=== PATIENT | male | born 1990 | race Caucasian/White ===

== ENCOUNTER 2017-03-09 21:43 | Emergency (ER) | payer OTHER ==
--- NOTE | ~2017-03-09 | EKG ---
PATIENT: DOE MILLER UNIT #: [id number] Ventricular Rate: 83 BPM Atrial Rate: 83 BPM P-R Interval: 126 ms QRS Duration: 92 ms Q-T Interval: 378 ms QTC Calculation(Bezet): 444 ms P [place]: 75 degrees Calculated R [place]: 67 degrees Calculated T [place]: 65 degrees Diagnosis Line: Normal sinus rhythm Diagnosis Line: Normal ECG Diagnosis Line: No previous ECGs available Diagnosis Line: Confirmed by KATHY CHAN MD ([id number]) on 03/10/2017 Diagnosis Line: 10:40:41 AM INTERPRETING MD: DUSTIN NAIR
--- NOTE | ~2017-03-09 | CT72 ---
[facility] A Service of [facility] RADIOLOGY TEXT RESULTS PATIENT: DOE MILLER LOCATION: [place] : [birth year] UNIT #: [id number] AGE: [address]: Ever Blake DO SEX: M ORDER DR: [id number] [facility] [address] [place], [place] [address] [id number] MR#: [id number] Acc #: [id number] NAME: DOE MILLER : 1990 SEX: M STUDY DATE/TIME: 03/09/2017 22:39 UNIT: [place] ROOM: STUDY DESCRIPTION: CT Head Wo Contrast Stroke Attending Physician: Ever Blake D.O. Ordering Physician: Ever Blake D.O. Primary Care Physician: No Primary Care Physician MEDICAL IMAGING REPORT This report is preliminary unless electronic signature is present EXAM Head CT. DATE OF EXAM 03/09/2017, 22:39. INDICATIONS Patient had stroke yesterday and was given TPA. Patient subsequently left against medical advice. Patient reports left hand numbness and left foot numbness with confusion and slurred speech today. Prior history of stroke. FINDINGS Axial images were obtained from the base to the vertex without contrast. COMPARISON Comparison is made with 03/08/2017. This CT exam was performed with one or more of the following radiation dose reduction techniques: automatic exposure control, adjustment of mA and/or kV according to patient size, and iterative reconstruction. Ventricular size and configuration remain normal. No acute infarct or hemorrhage. No masses. No skull fracture. IMPRESSION Negative head CT. No change from yesterday. Dictated by... Mike Elliott Jr., M.D. THIS IS AN ELECTRONICALLY VERIFIED REPORT Mike Elliott Jr., M.D. at 03/10/2017 6:01 AM [facility] A Service of [facility] RADIOLOGY TEXT RESULTS PATIENT: DOE MILLER LOCATION: [place] : [birth year] UNIT #: [id number] AGE: [address]: Ever Blake DO SEX: M ORDER DR: Paula TD: 03/09/2017 23:34 JOB #: [id number] MEDICAL IMAGING REPORT Page 1 of 1 COPY
[~2017-03-09 21:43] MED LIST: AUGMENTIN; BACTROBAN15 GM; BACTROBAN22 GM; CONCERTA PO; DARVOCET-N 1001 TA1 PO; FLEXERIL10 MG PO; IBUPROFEN800 MG PO; KEFLEX500 M1 PO; KEFLEX500 MG PO; MOTRIN600 M1 PO; MOTRIN600 MG PO; NAPROSYN500 MG PO; NO MEDICATIONS; ORUDIS75 M1 PO; PERCOCET5/325 PO; ROBAXIN; SEROQUEL PO; ULTRAM PO
[2017-03-09 23:02] LABS: BASOPHIL% 0.4 % (0-2.5); EOSINOPHIL# 0.3 X10e3 (0-0.7); HEMATOCRIT 43.3 % (38.0-50.0); LYMPHOCYTE# 2.8 X10e3 (1.0-3.5); LYMPHOCYTE% 32.2 % (17.0-45.0); MEAN CELL VOLUME 87.5 FL (83-96); MEAN CORPUSCULAR HEMOGLOBIN 30.2 PG (28-34); MEAN CORPUSCULAR HGB CONC 34.5 g/dL (30-36); MEAN PLATELET VOLUME 7.2 FL (6.5-11.5); NEUTROPHIL# 4.7 X10e3 (1.5-7.1); NEUTROPHIL% 53.4 % (40-75); PLATELET COUNT 252 X10e3 (140-420); RED BLOOD COUNT 4.95 X10e (3.90-5.60); RED CELL DISTRIBUTION WIDTH 12.8 % (11.0-15.5); WHITE BLOOD COUNT 8.8 X10e3 (4.0-10.5)
[2017-03-09 23:09] LABS: DIFF IND NO
[2017-03-09 23:16] LABS: INR 1.1; PARTIAL THROMBOPLASTIN TIME 25.5 SECONDS (23.5-31.3); PROTHROMBIN TIME (PATIENT) 11.4 SECONDS (9.6-11.5)
[2017-03-09 23:36] LABS: ALBUMIN SERUM 4.5 g/dL (3.5-5.0); BILIRUBIN, DIRECT 0.3 mg/dL (0.0-0.2); BILIRUBIN,INDIRECT 1.1 mg/dL (0.0-0.9); BILIRUBIN,TOTAL 1.4 mg/dL (0.2-2.0); BUN/CREATININE RATIO 18.57; CALCIUM SERUM 9.2 mg/dL (8.4-10.2); CREATININE SERUM 0.7 mg/dL (0.6-1.4); GLOM FILT RATE Estimated 128.5 mL/min (>60); POTASSIUM 3.1 mmol/L (3.5-5.1); PROTEIN TOTAL SERUM 7.3 g/dL (6.0-8.3)
[2017-03-10 00:11] LABS: POC - CKMB 1.4 ng/mL (0.0-7.9); POC - TROPONIN <0.05 ng/mL (<=0.05)
[2017-03-10 00:59] LABS: AMPHETAMINE NEG (NEG); BARBITURATES NEG (NEG); BENZODIAZEPINES NEG (NEG); COCAINE NEG (NEG); MARIJUANA POS (NEG); OPIATES NEG (NEG); TRICYCLIC ANTIDEPRESSANTS NEG (NEG); U METHADONE NEG (NEG)
== END 2017-03-10 00:53 | disposition left against medical advice (07) ==
LOC: CED 21:43
PROVIDERS: Emergency Medicine
DX: I63.9 Cerebral infarction, unspecified (principal); F17.200 Nicotine dependence, unspecified, uncomplicated
CPT/HCPCS: 36415; 70450; 80048; 80076; 80307; 82553; 82947; 84484; 85025; 85610; 85730; 93005; 99284